=== PATIENT | male | born 1975 | race Caucasian/White ===

== ENCOUNTER 2025-01-28 07:03 | Emergency (ER) | payer SELFPAY ==
[2025-01-28 07:07] VITALS: BP 176/109; PULSE 80; RESP 15; TEMP 36.6; O2SAT 98; BMI 21.4
--- NOTE | 2025-01-28 07:11 | ED_ITS ---
HPI - General Adult General Chief complaint: Environmental Exposure Stated complaint: found in dumpster Time Seen by Provider: 01/28/25 07:30 History of Present Illness HPI narrative: Patient brought in by ambulance from a local business. Patient was sleeping in the dumpster. The worker at the business called EMS. Patient states he was just trying to stay out of the cold. He denies any fall or injury. Denies any alcohol or drug use. He states he has been homeless for the past 6 years. He is originally from [place], [place]. He states he is interested in going to resources for [facility]. He denies being on any medications. Is not allergic to any medications. Patient is not hypothermic. Wet shoes and socks were removed and warm blankets provided. Coffee provided Related Data Allergies Allergy/AdvReac Type Severity Reaction Status Date / Time No Known Drug Allergies Allergy Verified 01/28/25 07:11 Review of Systems Review of Systems Narrative: GENERAL: Negative chills, fatigue, malaise, fever, sweats. HEENT: Negative sinus pain, ear pain, sore throat RESPIRATORY: Negative dyspnea, cough CARDIOVASCULAR: Negative chest pain, palpitations GASTROINTESTINAL: Negative vomiting, nausea, abdominal pain : Negative dysuria, frequency, hematuria MUSCULOSKELETAL: Negative muscle or bony pain SKIN: Negative rash, skin lesions NEUROLOGIC: Negative weakness, numbness ROS Unobtainable: All systems reviewed & are unremarkable except as noted in HPI and below Patient History Social History Smoking Status: Current every day smoker Exam Narrative Exam Narrative: GENERAL: in no distress, not toxic not dyspneic HEAD: Normocephalic. EYES: Pupils equal round ENT: Mucous membranes moist. NECK: Trachea midline. CARDIOVASCULAR: Regular rate and rhythm RESPIRATORY: Clear to auscultation. Breath sounds equal bilaterally. No wheezes, rales, or rhonchi. GASTROINTESTINAL: Abdomen soft, non-tender BACK: No flank tenderness. EXTREMITIES: No gross deformities. No frostbite seen on fingers or toes. No trench foot. Palpable pedal pulses on the feet. NEURO: AOx3. Clear speech SKIN: Warm and dry PSYCH: Not anxious, is cooperative Initial Vital Signs Initial Vital Signs: Vital Signs Temperature 97.9 F 01/28/25 07:07 Pulse Rate 80 01/28/25 07:07 Respiratory Rate 15 01/28/25 07:07 Blood Pressure 176/109 H 01/28/25 07:07 Pulse Oximetry 98 01/28/25 07:07 Oxygen Delivery Method Room Air 01/28/25 07:07 Course Vital Signs Vital signs: Vital Signs - 8 hr 01/28/25 07:07 01/28/25 07:33 01/28/25 10:46 Temperature 97.9 F Pulse Rate 80 63 112 H Respiratory Rate 15 Blood Pressure 176/109 H Pulse Oximetry 98 98 98 Oxygen Delivery Method Room Air 01/28/25 10:46 01/28/25 10:47 01/28/25 10:47 Temperature Pulse Rate 112 H Respiratory Rate Blood Pressure 164/113 H 144/99 H Pulse Oximetry 98 Oxygen Delivery Method 01/28/25 11:07 Temperature 99.3 F Pulse Rate 101 H Respiratory Rate Blood Pressure Pulse Oximetry Oxygen Delivery Method Medical Decision Making MDM Narrative Medical decision making narrative: Patient brought in by ambulance from a local business. Patient was sleeping in the dumpster. The worker at the business called EMS. Patient states he was just trying to stay out of the cold. He denies any fall or injury. Denies any alcohol or drug use. He states he has been homeless for the past 6 years. He is originally from [place], [place]. He states he is interested in going to resources for [facility]dc. He denies being on any medications. Is not allergic to any medications. Patient is not hypothermic. Wet shoes and socks were removed and warm blankets provided. Coffee provided MDM After history and exam, history and exam is reassuring. Patient was just trying to stay in out of the cold and elements. Denies any fall or injury no recent illness. no blood work or imaging indicated. Differential considered: Includes but not limited to Medical screening Medical records reviewed: no recent visit Re-evaluations: 10:36 a.m.. Patient given new clothing and dry clothing and socks. Given breakfast here as well. resources for shelters provided for him. Discussion: appropriate for discharge. Patient has no complaints. Patient was found in a dumpster sleeping to stay out of the elements. He has no complaints. Diagnosis: medical screening/homeless Discharge Plan Departure Patient Disposition: Home Clinical Impression: Encounter for medical screening examination Instructions: DI for Hypothermia Activity Restrictions/Additional Instructions: please call provided shelters to stay in. be sure to keep your clothing dry. Especially Your shoes and socks. Stand Alone Forms: Patient Portal/API
[2025-01-28 07:33] VITALS: PULSE 63; O2SAT 98
[2025-01-28 10:46] VITALS: BP 164/113; PULSE 112; O2SAT 98
[2025-01-28 10:47] VITALS: BP 144/99; PULSE 112; O2SAT 98
[2025-01-28 11:07] VITALS: PULSE 101; TEMP 37.4
== END 2025-01-28 11:12 | disposition home or self-care (01) ==
LOC: ED 08:42
PROVIDERS: Emergency Provider Emergency Medicine
DX: Z77.128 Contact with and (suspected) exposure to other hazards in the physical environment (principal); Z59.00 Homelessness unspecified
CPT/HCPCS: 99281